=== PATIENT | male | born 1985 | race Caucasian/White ===

== ENCOUNTER 2017-10-12 01:12 | Emergency (ER) | payer MEDICAID ==
[~2017-10-12] VITALS: Ht 188 cm; Wt 91.4 kg
[2017-10-12] MEDS ORDERED: PROZ10 PO (01:28)
[2017-10-12] MEDS ORDERED: ZIPR20CA2 PO (01:28)
[2017-10-12] MEDS ORDERED: BENZ0.5T44 PO (01:28)
[2017-10-12] MEDS ORDERED: FLUoxetine HCL 10 MG CAPSULE PO ONE (02:15)
[2017-10-12] MEDS ORDERED: BENZTROPINE MESYLATE 2 MG TABLET PO ONE (02:15)
[2017-10-12] MEDS ORDERED: BENZTROPINE MESYLATE 0.5 MG TABLET PO ONE (02:15)
[2017-10-12] MEDS ORDERED: ZIPRASIDONE HCL 40 MG CAPSULE PO ONE (02:15)
[2017-10-12] MEDS ORDERED: ZIPRASIDONE HCL 20 MG CAPSULE PO ONE (02:15)
[2017-10-12 02:18] VITALS: BP 136/75
== END 2017-10-12 02:21 | disposition home or self-care (01) ==
LOC: EMS 01:13
DX: S00.83XA Contusion of other part of head, initial encounter (principal); F41.9 Anxiety disorder, unspecified; F32.9 Major depressive disorder, single episode, unspecified; F20.9 Schizophrenia, unspecified; F17.210 Nicotine dependence, cigarettes, uncomplicated; F12.90 Cannabis use, unspecified, uncomplicated; Y04.0XXA Assault by unarmed brawl or fight, initial encounter; Y93.89 Activity, other specified; Y92.89 Other specified places as the place of occurrence of the external cause; Y99.8 Other external cause status
CPT/HCPCS: 99284; 99406